=== PATIENT | male | born 1995 | race African-American/Black ===

== ENCOUNTER 2018-11-12 19:26 | Emergency (ER) | payer SELFPAY ==
[~2018-11-12] VITALS: Ht 177.8 cm; Wt 74.1 kg
--- NOTE | 2018-11-12 19:47 | NUR ---
"OOZING FROM PENIS, BULGING" BULGING ONSET TODAY, DRAINAGE X 2 DAYS. BURNING WITH URINATION. per triage note pt is in bathroom with urine cup
[2018-11-12] MEDS ORDERED: AZITHROMYCIN 500 MG TABLET ONE (19:50)
[2018-11-12] MEDS ORDERED: LIDOCAINE-MPF 1%, 2ML ONE (19:50)
[2018-11-12] MEDS ORDERED: CEFTRIAXONE 250 MG ONE (19:51)
[2018-11-12] MEDS ORDERED: AZITHROMYCIN 500 MG TABLET PO ONE (20:00)
[2018-11-12] MEDS ORDERED: CEFTRIAXONE 250 MG IM ONE (20:00)
[2018-11-12] MEDS ORDERED: HYDROcodone/APAP 5/325 TABLET ONE (20:07)
--- NOTE | 2018-11-12 20:20 | NUR ---
given medication per md order ua sent to lab
--- NOTE | 2018-11-12 20:24 | NUR ---
all meds given pt is waiting for us now
[2018-11-12] MEDS ORDERED: HYDROcodone/APAP 5/325 TABLET PO ONE (20:30)
[2018-11-12 20:34] LABS: MICROSCOPIC AUTO
[2018-11-12 20:36] LABS: CULTURE INDICATED? YES
--- NOTE | 2018-11-12 20:45 | NUR ---
pt is in us urine is in lab for test ( ua and chlamydia ) test
[2018-11-12 21:15] VITALS: BP 122/78
--- NOTE | 2018-11-12 21:15 | NUR ---
given dc instruction with prescription pt understood
== END 2018-11-12 21:17 | disposition home or self-care (01) ==
LOC: ED 19:53
DX: A74.9 Chlamydial infection, unspecified (principal); A54.9 Gonococcal infection, unspecified; N45.1 Epididymitis; Z20.2 Contact with and (suspected) exposure to infections with a predominantly sexual mode of transmission
CPT/HCPCS: 76870; 81001; 87086; 87491; 87591; 96372; 99284; J0696

== ENCOUNTER 2020-02-01 00:20 | Emergency (ER) | payer SELFPAY ==
[~2020-02-01] VITALS: Ht 177.8 cm; Wt 88.0 kg
--- NOTE | 2020-02-01 01:08 | NUR ---
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
--- NOTE | 2020-02-01 01:22 | NUR ---
Pt presents to ed c/o n/v and intermittent dizzinessx"multiple months." Denies LOC. Denies any cardiac hx. Monitoring applied. VSS. Call light within reach. Awaiting md assessment.
[2020-02-01] MEDS ORDERED: ONDANSETRON 2MG/ML, 2ML ONE (01:57)
[2020-02-01] MEDS ORDERED: MAALOX/HYOSCYAMINE/LIDOCAINE 45 ML BTL ONE (01:57)
[2020-02-01] MEDS ORDERED: FAMOTIDINE 20 MG/2 ML ONE (01:58)
[2020-02-01] MEDS ORDERED: FAMOTIDINE 20 MG/2 ML IV ONE (02:00)
[2020-02-01] MEDS ORDERED: SODIUM CHLORIDE 0.9% 1,000ML IVBOLUS ONE (02:00)
[2020-02-01] MEDS ORDERED: SODIUM CHLORIDE FLUSH 10ML SYR IVF ONE (02:00)
[2020-02-01] MEDS ORDERED: ONDANSETRON 2MG/ML, 2ML IVPush ONE (02:00)
[2020-02-01] MEDS ORDERED: MAALOX/HYOSCYAMINE/LIDOCAINE 45 ML BTL PO ONE (02:00)
[2020-02-01 02:16] VITALS: BP 107/71
[2020-02-01 02:30] LABS: ALANINE AMINOTRANSFERASE 45 U/L (12-78); ALBUMIN 4.2 g/dL (3.4-5.0); ANION GAP 7 mmol/L (5-15); CALCIUM 9.1 mg/dL (8.5-10.1); CHLORIDE 107 mmol/L (98-107)
[2020-02-01 02:31] LABS: BASOPHILS # (AUTO) 0.04 x10^3/uL (0-0.1); BASOPHILS % (AUTO) 1 % (0-1); EOSINOPHILS # (AUTO) 0.05 x10^3/uL (0-0.4); EOSINOPHILS % (AUTO) 1 % (1-7); LYMPHOCYTES # (AUTO) 2.37 x10^3/uL (1-3.4); LYMPHOCYTES % (AUTO) 37 % (22-44); MD NO; MEAN CORPUSCULAR HEMOGLOBIN 26.6 pg (27.5-34.5); MEAN CORPUSCULAR VOLUME 80.6 fL (81-97); MEAN PLATELET VOLUME 8.7 fL (7.4-10.4); MONOCYTES # (AUTO) 0.58 x10^3/uL (0.2-0.8); MONOCYTES % (AUTO) 9 % (2-9); NEUTROPHILS # (AUTO) 3.46 x10^3/uL (1.8-6.8); NEUTROPHILS % (AUTO) 53 % (42-75); PLATELET COUNT 243 x10^3/uL (130-400); RED BLOOD COUNT 5.86 x10^6/uL (4.38-5.82); RED CELL DISTRIBUTION WIDTH 12.7 % (9.4-14.8)
[2020-02-01 02:32] LABS: ALKALINE PHOSPHATASE 52 U/L (45-117); BILIRUBIN,TOTAL 0.8 mg/dL (0.2-1.0); CREATININE 1.39 mg/dL (0.7-1.3); TOTAL PROTEIN 8.1 g/dL (6.4-8.2)
--- NOTE | 2020-02-01 02:54 | NUR ---
Pt states feeling better after medical logistics specialist. No immediate needs. Md at bedside for recheck.
== END 2020-02-01 03:54 | disposition home or self-care (01) ==
LOC: ED 03:30
DX: K29.20 Alcoholic gastritis without bleeding (principal); R10.13 Epigastric pain; R11.2 Nausea with vomiting, unspecified; R94.31 Abnormal electrocardiogram [ECG] [EKG]; F10.10 Alcohol abuse, uncomplicated; Y90.0 Blood alcohol level of less than 20 mg/100 ml
CPT/HCPCS: 36415; 80053; 83690; 85025; 93005; 96361; 96374; 96375; 99284; J2405; J3490; J7030

== ENCOUNTER 2020-04-23 19:06 | Emergency (ER) | payer SELFPAY ==
[~2020-04-23] VITALS: Ht 175.3 cm; Wt 79.4 kg
[2020-04-23 19:31] VITALS: BP 140/88
--- NOTE | 2020-04-23 19:43 | NUR ---
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
[2020-04-23 20:32] LABS: MICROSCOPIC NOT IND
[2020-04-23] MEDS ORDERED: AZITHROMYCIN 500 MG TABLET ONE (20:45)
[2020-04-23] MEDS ORDERED: CEFTRIAXONE 250 MG ONE ×2 (20:46→20:48)
[2020-04-23] MEDS ORDERED: CEFTRIAXONE 250 MG IM ONE (21:00)
[2020-04-23] MEDS ORDERED: AZITHROMYCIN 500 MG TABLET PO ONE (21:00)
== END 2020-04-23 21:24 | disposition home or self-care (01) ==
LOC: ED 20:45
DX: A74.9 Chlamydial infection, unspecified (principal); Z20.2 Contact with and (suspected) exposure to infections with a predominantly sexual mode of transmission; Z87.891 Personal history of nicotine dependence
CPT/HCPCS: 81003; 87491; 87591; 96372; 99283; J0696